=== PATIENT | female | born 2005 | race Two or more races ===

== ENCOUNTER 2023-09-25 18:28 | Emergency (ER) | payer MEDICAID, OTHER ==
[~2023-09-25] VITALS: Ht 167.6 cm; Wt 83.4 kg
[2023-09-25 20:29] LABS: Urine Amorphous Crystal FEW /hpf (None Seen); Urine Bacteria FEW /hpf (None Seen); Urine Blood Negative /uL (Negative); Urine Clarity Turbid (Clear); Urine Color Light-Yellow (Yellow); Urine Protein, UAD Negative (Negative); Urine Specific Gravity 1.025 (1.001-1.035); Urine Urobilinogen Normal (Negative); Urine WBC 5 /hpf (0 - 5); Urine pH 6.5 (5.0-9.0)
[2023-09-25 23:14] VITALS: BP 112/87; PULSE 86; RESP 20; TEMP 98
[2023-09-25] MEDS ORDERED: HYDR2.5C39 TOP (23:46)
[2023-09-25] MEDS ORDERED: ACET500T58 PO (23:46)
[2023-09-25] MEDS ORDERED: CEPH500C PO (23:46)
[2023-09-25 23:54] VITALS: O2SAT 97
== END 2023-09-25 23:59 | disposition home or self-care (01) ==
LOC: ER 18:28
DX: K64.4 Residual hemorrhoidal skin tags (principal); N39.0 Urinary tract infection, site not specified; Z79.899 Other long term (current) drug therapy
CPT/HCPCS: 81001